=== PATIENT | female | born 1965 | race Caucasian/White ===

== ENCOUNTER 2019-01-16 11:54 | Inpatient (IN) | payer OTHER ==
[~2019-01-16] VITALS: Ht 160 cm; Wt 124.7 kg
[~2019-01-16 11:54] MED LIST: LISINOPRIL-HCT1 EAC2; MEGESTROL ACETA20 MG PO; SYNTHROID100 MCG PO; SYNTHROID75 MCG PO; TERCONAZOLE45 GM; VIT D PO
[2019-01-20] MEDS ORDERED: VITAMIN D400 UNI2 (08:37)
[2019-01-22] MEDS ORDERED: OXYC1TAB9 PO (07:19)
[2019-01-22] MEDS ORDERED: MAXFE CAPLET1 EACH PO (07:19)
== END 2019-01-22 10:44 | disposition home or self-care (01) | DRG 743 ==
LOC: EDSTATUS 13:45 → CIR.AMB 01-20 07:00 → OB/GYN 01-20 07:02 → O/R 01-20 07:02 → OB/GYN 01-20 13:15 → EDSTATUS 01-20 13:45 → CIR.AMB 01-20 13:45 → SURH 01-20 13:45 → OB/GYN 01-22 10:44
PROVIDERS: ADMIT Obstetrics & Gynecology Gynecology
PROC: 0UT50ZZ Resection of Right Fallopian Tube, Open Approach (ICD-10-PCS; 2019-01-20)
PROC: 0UT10ZZ Resection of Left Ovary, Open Approach (ICD-10-PCS; 2019-01-20)
PROC: 0UT90ZZ Resection of Uterus, Open Approach (ICD-10-PCS; principal; 2019-01-20 07:00)
DX: D26.1 Other benign neoplasm of corpus uteri (principal); N80.0 Endometriosis of uterus; N80.2 Endometriosis of fallopian tube; N73.6 Female pelvic peritoneal adhesions (postinfective); I10 Essential (primary) hypertension; E03.8 Other specified hypothyroidism